=== PATIENT | male | born 1970 | race Caucasian/White ===

== ENCOUNTER 2019-08-11 12:25 | Emergency (ER) | payer OTHER ==
[~2019-08-11] VITALS: Ht 180.3 cm; Wt 79.4 kg
[2019-08-11 12:45] VITALS: BP_SYST 138
[2019-08-11 13:34] LABS: BASOPHILS % (AUTO) 0.6 % (0.0-2.0); EOSINOPHILS % (AUTO) 0.5 % (0.0-4.0); HEMATOCRIT 48.7 % (36-54); HEMOGLOBIN 16.6 g/dL (14.0-18.0); LYMPHOCYTES # (AUTO) 1.1 K/uL (1.0-5.5); MEAN CORPUSCULAR HEMOGLOBIN 33 pg (27-31); MEAN CORPUSCULAR HGB CONC 34 % (32-36); MEAN CORPUSCULAR VOLUME 96 fL (79.0-98.0); MONOCYTES # (AUTO) 0.5 K/uL (0.0-1.0); MONOCYTES % (AUTO) 7.4 % (1.7-9.3); NEUTROPHILS # (AUTO) 4.9 K/uL (1.8-7.7); NEUTROPHILS % (AUTO) 74.5 % (40.0-70.0); PLATELET COUNT (AUTO) 258 K/uL (130-430); RED CELL DISTRIBUTION WIDTH 13.9 % (9.0-15.0); WHITE BLOOD COUNT (AUTO) 6.6 K/uL (4.8-10.8)
[2019-08-11 13:49] LABS: ANION GAP 9 (5-15); CALCIUM 8.5 mg/dL (8.4-11.0); CHLORIDE 100 mmol/L (98-107); CREATININE 0.98 mg/dL (0.55-1.30); GLUCOSE 103 mg/dL (70-99); SODIUM SERUM 134 mmol/L (136-145); UREA NITROGEN, BLOOD 7 mg/dL (8-21)
[2019-08-11 13:52] LABS: PROTHROMBIN TIME 10.3 SECS (9.5-12.5)
[2019-08-11 13:55] LABS: BILIRUBIN,URINE 1+ (NEGATIVE); BLOOD, URINE NEGATIVE (NEGATIVE); CLARITY/URINE CLEAR (CLEAR); COLOR,URINE YELLOW (YELLOW); GLUCOSE,URINE NEGATIVE (NEGATIVE); KETONES,URINE TRACE (NEGATIVE); LEUKOCYTE ESTERASE ,URINE NEGATIVE (NEGATIVE); NITRITE, URINE NEGATIVE (NEGATIVE); PH,URINE 6.5 (5.0-8.0); PROTEIN URINE TRACE (NEGATIVE); UROBILINOGEN,URINE 0.2 (0.2-1.0)
[2019-08-11 13:56] LABS: GFR AFRICAN AMERICAN 105 mL/min (>90)
[2019-08-11] MEDS ORDERED: DIPH-TET-PERTUS Vaccine 0.5 ML VIAL (ADACEL) I.M. ONE (14:00)
[2019-08-11] MEDS ORDERED: LIDOCAINE/EPI 2% 1:100000 20 ML VIAL INJ ONE (14:00)
[2019-08-11 14:08] LABS: ALANINE AMINOTRANSFERASE 21 U/L (12-78); ASPARTATE AMINOTRANSFERASE 8 U/L (10-37); FREE T4 (FREE THYROXINE) 1.1 ng/dl (0.8-1.5); TOTAL BILIRUBIN 0.3 mg/dL (0.0-1.0)
[2019-08-11 14:11] LABS: ALCOHOL, BLOOD < 3 mg/dL (<10)
[2019-08-11 14:19] LABS: BARBITURATE, URINE NEGATIVE (NEG <=200); BENZODIAZEPINE, URINE NEGATIVE (NEG <=150); CANNABINOID, URINE NEGATIVE (NEG <=50); COCAINE, URINE NEGATIVE (NEG <=150); METHAMPHETAMINES SCREEN,URINE NEGATIVE (NEG <=500); OPIATE, URINE NEGATIVE (NEG <=100); PHENCYCLIDINE SCREEN,URINE NEGATIVE (NEG <=25); UR TRICYCLIC ANTIDEPRESSANTS NEGATIVE (NEG <=300); URINE AMPHETAMINE NEGATIVE (NEG <=500); URINE METHADONE NEGATIVE (NEG <=200); URINE OXYCODONE SCREEN NEGATIVE (NEG <=100); URINE PROPOXYPHENE SCREEN NEGATIVE (NEG <=300)
[2019-08-11] MEDS ORDERED: BACITRACIN 1 GM OINT TP ONE (14:39)
[2019-08-11 14:40] VITALS: BP_SYST 137
== END 2019-08-11 14:40 | disposition home or self-care (01) ==
LOC: SED 12:25
DX: S01.111A Laceration without foreign body of right eyelid and periocular area, initial encounter (principal); W18.39XA Other fall on same level, initial encounter; Y93.89 Activity, other specified; Y92.89 Other specified places as the place of occurrence of the external cause; Y99.8 Other external cause status
CPT/HCPCS: 12013; 36415; 70450; 71045; 74018; 80053; 80307; 81003; 82140; 83605; 83880; 84439; 84484; 85025; 85610; 87040; 90471; 90715; 93005; 99285; G0482

== ENCOUNTER 2020-03-06 11:33 | Emergency (ER) | payer OTHER, SELFPAY ==
[~2020-03-06] VITALS: Ht 167.6 cm; Wt 65.8 kg
[2020-03-06 11:40] VITALS: BP_SYST 137
--- NOTE | 2020-03-06 11:40 | NUR ---
Patient to ER bed 08 to gown for evaluation. Side rails up.
--- NOTE | 2020-03-06 11:42 | NUR ---
Patient brought in by ambulance in the ED c/o mild cough, diarrhea and right foot pain. Denied any chest pain or shortness of breath. Denied any fevers, chills, nausea or vomiting. Patient is alert and oriented x4, respirations even and unlabored, speaking in full sentences, and ambulating with a steady gait. VSS, pain level 4/10. Informed of the approximate wait time. Instructed to notify ED staff for any changes in condition or worsening of symptoms while waiting to be seen by an ED provider. Patient verbalized understanding.
--- NOTE | 2020-03-06 11:43 | NUR ---
ER Dr. Mendoza at bedside examining patient.
--- NOTE | 2020-03-06 11:49 | NUR ---
Swabbed for Covid-[address] Mendoza wearing the proper PPEs per facility protocol. Patient tolerated the procedure well. Dropped off specimen at the lab.
[2020-03-06] MEDS ORDERED: IBUPROFEN 600 MG TABLET PO ONE (12:00)
[2020-03-06 13:47] VITALS: BP_SYST 137
--- NOTE | 2020-03-06 13:47 | NUR ---
Patient given written and verbal discharge instructions and verbalizes understanding. ER MD discussed with patient the results and treatment provided. Patient in stable condition. ID arm band removed. No Rx given. Patient educated on pain management and to follow up with PMD. Pain Scale 0/10. Opportunity for questions provided and answered. Medication side effect fact sheet provided.
== END 2020-03-06 13:47 | disposition home or self-care (01) ==
LOC: SED 11:33
DX: J40 Bronchitis, not specified as acute or chronic (principal); M79.671 Pain in right foot; Z20.828 Contact with and (suspected) exposure to other viral communicable diseases
CPT/HCPCS: 36415; 71045; 99284

== ENCOUNTER 2020-03-23 19:11 | Emergency (ER) | payer OTHER ==
[~2020-03-23] VITALS: Ht 182.9 cm; Wt 90.7 kg
[2020-03-23 19:17] VITALS: BP_SYST 135
[2020-03-23 20:11] LABS: BASOPHILS # (AUTO) 0.1 K/uL (0.0-0.2); BASOPHILS % (AUTO) 2.5 % (0.0-2.0); EOSINOPHILS # (AUTO) 0.1 K/uL (0.0-0.4); EOSINOPHILS % (AUTO) 2.4 % (0.0-4.0); HEMATOCRIT 43.2 % (36-54); HEMOGLOBIN 15.1 g/dL (14.0-18.0); LYMPHOCYTES # (AUTO) 1.5 K/uL (1.0-5.5); LYMPHOCYTES % (AUTO) 26.3 % (20.5-51.5); MEAN CORPUSCULAR HEMOGLOBIN 33 pg (27-31); MEAN CORPUSCULAR HGB CONC 35 % (32-36); MEAN CORPUSCULAR VOLUME 94 fL (79.0-98.0); MONOCYTES # (AUTO) 0.6 K/uL (0.0-1.0); MONOCYTES % (AUTO) 11.5 % (1.7-9.3); NEUTROPHILS # (AUTO) 3.2 K/uL (1.8-7.7); NEUTROPHILS % (AUTO) 57.3 % (40.0-70.0); PLATELET COUNT (AUTO) 240 K/uL (130-430); RED BLOOD CELL COUNT(AUTO) 4.58 MIL/uL (4.2-6.2); RED CELL DISTRIBUTION WIDTH 14.6 % (9.0-15.0); WHITE BLOOD COUNT (AUTO) 5.6 K/uL (4.8-10.8)
[2020-03-23 20:19] LABS: ANION GAP 8 (5-15); CALCIUM 8.6 mg/dL (8.4-11.0); CHLORIDE 104 mmol/L (98-107); CREATININE 0.94 mg/dL (0.55-1.30); GLUCOSE 101 mg/dL (70-99); POTASSIUM 3.9 mmol/L (3.5-5.1); SODIUM SERUM 138 mmol/L (136-145); UREA NITROGEN, BLOOD 24 mg/dL (8-21)
[2020-03-23 20:20] LABS: GFR AFRICAN AMERICAN 109 mL/min (>90)
[2020-03-23 20:24] LABS: ALANINE AMINOTRANSFERASE 15 U/L (12-78); ALBUMIN 3.6 g/dL (3.4-4.8); ASPARTATE AMINOTRANSFERASE 16 U/L (10-37); TOTAL BILIRUBIN 0.5 mg/dL (0.0-1.0)
[2020-03-23 20:27] LABS: ALCOHOL, BLOOD < 3 mg/dL (<10)
[2020-03-23 20:29] LABS: ACETAMINOPHEN < 1 ug/mL (1-30)
[2020-03-23 20:38] LABS: BILIRUBIN,URINE NEGATIVE (NEGATIVE); BLOOD, URINE NEGATIVE (NEGATIVE); CLARITY/URINE CLEAR (CLEAR); COLOR,URINE YELLOW (YELLOW); GLUCOSE,URINE NEGATIVE (NEGATIVE); KETONES,URINE NEGATIVE (NEGATIVE); LEUKOCYTE ESTERASE ,URINE NEGATIVE (NEGATIVE); NITRITE, URINE NEGATIVE (NEGATIVE); PH,URINE 6.5 (5.0-8.0); PROTEIN URINE NEGATIVE (NEGATIVE)
[2020-03-23 20:55] LABS: BARBITURATE, URINE NEGATIVE (NEG <=200); BENZODIAZEPINE, URINE NEGATIVE (NEG <=150); CANNABINOID, URINE POSITIVE (NEG <=50); COCAINE, URINE NEGATIVE (NEG <=150); METHAMPHETAMINES SCREEN,URINE POSITIVE (NEG <=500); OPIATE, URINE NEGATIVE (NEG <=100); PHENCYCLIDINE SCREEN,URINE NEGATIVE (NEG <=25); UR TRICYCLIC ANTIDEPRESSANTS NEGATIVE (NEG <=300); URINE AMPHETAMINE POSITIVE (NEG <=500); URINE METHADONE NEGATIVE (NEG <=200); URINE OXYCODONE SCREEN NEGATIVE (NEG <=100); URINE PROPOXYPHENE SCREEN NEGATIVE (NEG <=300)
[2020-03-23 22:35] VITALS: BP_SYST 135
== END 2020-03-23 22:33 ==
LOC: SED 19:11
DX: R45.1 Restlessness and agitation (principal); F31.9 Bipolar disorder, unspecified; F20.9 Schizophrenia, unspecified; Z20.828 Contact with and (suspected) exposure to other viral communicable diseases
CPT/HCPCS: 36415; 80053; 80307; 81003; 85025; 87081; 87426; 99285; G0480; G0481; G0482

== ENCOUNTER 2020-10-25 20:57 | Emergency (ER) | payer OTHER, SELFPAY ==
[~2020-10-25] VITALS: Ht 180.3 cm; Wt 78.9 kg
[2020-10-25 21:20] VITALS: BP_SYST 148
[2020-10-25] MEDS ORDERED: LORazepam 1 MG TABLET PO ONE (21:45)
[2020-10-25] MEDS ORDERED: KETOROLAC TROMETHAMINE 60 MG/2 ML VIAL IM ONE (21:45)
[2020-10-26] MEDS ORDERED: IBUP-1969 PO (03:02)
[2020-10-26 06:02] VITALS: BP_SYST 131
== END 2020-10-26 06:02 | disposition home or self-care (01) ==
LOC: SED 20:57
DX: M43.6 Torticollis (principal)
CPT/HCPCS: 72040; 96372; 99283; J1885

== ENCOUNTER 2021-03-31 20:00 | Inpatient (IN) | payer OTHER, SELFPAY ==
[~2021-03-31] VITALS: Ht 180.3 cm; Wt 84.8 kg
[~2021-03-31 20:00] MED LIST: IBUP-1969 PO
[2021-03-31 20:15] VITALS: BP_SYST 133
[2021-03-31] MEDS ORDERED: DIVA250T PO (20:43)
[2021-03-31] MEDS ORDERED: ESCI20TA PO (20:43)
[2021-03-31] MEDS ORDERED: TRAZ-251 PO (20:43)
[2021-03-31] MEDS ORDERED: RISP3TAB63 PO (20:43)
[2021-03-31 20:47] LABS: HEMOGLOBIN 14.3 g/dL (14.0-18.0); MEAN CORPUSCULAR HGB CONC 35 % (32-36); MONOCYTES # (AUTO) 0.6 K/uL (0.0-1.0); NEUTROPHILS # (AUTO) 3.8 K/uL (1.8-7.7)
[2021-03-31 20:54] LABS: ANION GAP 8 (5-15); CALCIUM 9.1 mg/dL (8.4-11.0); CHLORIDE 101 mmol/L (98-107); CREATININE 1.03 mg/dL (0.55-1.30); GLUCOSE 110 mg/dL (70-99); POTASSIUM 4.7 mmol/L (3.5-5.1); SODIUM SERUM 139 mmol/L (136-145); UREA NITROGEN, BLOOD 15 mg/dL (8-21)
[2021-03-31 20:55] LABS: BASOPHILS % (AUTO) 0.4 % (0.0-2.0); C-REACTIVE PROTEIN QUANT 1.4 mg/dL (0-0.5); EOSINOPHILS % (AUTO) 0.7 % (0.0-4.0); GFR AFRICAN AMERICAN 98 mL/min (>90); LYMPHOCYTES # (AUTO) 1.4 K/uL (1.0-5.5); LYMPHOCYTES % (AUTO) 23.6 % (20.5-51.5); MEAN CORPUSCULAR HEMOGLOBIN 31 pg (27-31); MEAN CORPUSCULAR VOLUME 90 fL (79.0-98.0); MONOCYTES % (AUTO) 10.9 % (1.7-9.3); NEUTROPHILS % (AUTO) 64.4 % (40.0-70.0); PLATELET COUNT (AUTO) 398 K/uL (130-430); RED BLOOD CELL COUNT(AUTO) 4.55 MIL/uL (4.2-6.2); RED CELL DISTRIBUTION WIDTH 13.7 % (9.0-15.0); WHITE BLOOD COUNT (AUTO) 5.9 K/uL (4.8-10.8)
[2021-03-31 20:59] LABS: INR 0.9 (0.80-1.20)
[2021-03-31 21:00] LABS: ALANINE AMINOTRANSFERASE 31 U/L (12-78); ALBUMIN 3.3 g/dL (3.4-4.8); ASPARTATE AMINOTRANSFERASE 18 U/L (10-37); TOTAL BILIRUBIN 0.2 mg/dL (0.0-1.0)
[2021-03-31 21:01] LABS: ACETAMINOPHEN < 1 ug/mL (1-30); ALCOHOL, BLOOD < 3 mg/dL (<10)
[2021-03-31] MEDS ORDERED: CLIN300C12 PO (21:10)
[2021-03-31] MEDS ORDERED: BACITRACIN 1 GM OINT TP ONE (21:15)
[2021-03-31] MEDS ORDERED: MORPHINE 2 MG/ML INJ. SYRINGE IVP PRN (21:45)
[2021-03-31] MEDS ORDERED: VANCOMYCIN HCL 1000 MG/VIAL IV ONE (21:52)
[2021-03-31] MEDS ORDERED: PIPERACILLIN/TAZOBACTAM 3.375 GM/VIAL (ZOSYN) IV ONE (21:52)
[2021-03-31] MEDS ORDERED: VANCOMYCIN HCL 1,000 MG in NS 250 ML IV ONE (22:00)
[2021-03-31] MEDS: PIPERACILLIN/TAZO 3.375 GM in NS 50 ML IV SCH (22:02)
[2021-04-01 00:15] VITALS: BP_SYST 139
[2021-04-01] MEDS: MORPHINE 2 MG/ML INJ. SYRINGE IVP PRN (01:50)
[2021-04-01] MEDS ORDERED: PIPERACILLIN/TAZOBACTAM 3.375 GM/VIAL (ZOSYN) IV ONE (02:25)
[2021-04-01] MEDS: PIPERACILLIN/TAZO 3.375 GM in NS 50 ML IV SCH ×3 (05:11→21:06)
[2021-04-01 08:00] VITALS: BP_SYST 140
[2021-04-01] MEDS: VANCOMYCIN HCL 1,250 MG in NS 250 ML IV SCH ×2 (09:43→21:05)
[2021-04-01 12:00] VITALS: BP_SYST 128
[2021-04-01 16:00] VITALS: BP_SYST 124
[2021-04-01 20:00] VITALS: BP_SYST 127
[2021-04-02 01:10] VITALS: BP_SYST 143
[2021-04-02] MEDS: PIPERACILLIN/TAZO 3.375 GM in NS 50 ML IV SCH ×3 (06:22→22:14)
[2021-04-02 08:00] VITALS: BP_SYST 115
[2021-04-02] MEDS: VANCOMYCIN HCL 1,250 MG in NS 250 ML IV SCH ×2 (08:27→22:14)
[2021-04-02 09:58] LABS: BARBITURATE, URINE NEGATIVE (NEG <=200); BENZODIAZEPINE, URINE NEGATIVE (NEG <=150); CANNABINOID, URINE POSITIVE (NEG <=50); COCAINE, URINE NEGATIVE (NEG <=150); METHAMPHETAMINES SCREEN,URINE POSITIVE (NEG <=500); OPIATE, URINE NEGATIVE (NEG <=100); PHENCYCLIDINE SCREEN,URINE NEGATIVE (NEG <=25); UR TRICYCLIC ANTIDEPRESSANTS NEGATIVE (NEG <=300); URINE AMPHETAMINE POSITIVE (NEG <=500); URINE METHADONE NEGATIVE (NEG <=200); URINE OXYCODONE SCREEN NEGATIVE (NEG <=100); URINE PROPOXYPHENE SCREEN NEGATIVE (NEG <=300)
[2021-04-02 12:00] VITALS: BP_SYST 133
[2021-04-02 16:00] VITALS: BP_SYST 125
[2021-04-02 20:00] VITALS: BP_SYST 126
[2021-04-02] MEDS: traZODone HCL 50 MG TABLET (DESYREL) PO SCH (22:18)
[2021-04-02] MEDS: risperiDONE 1 MG TABLET (RisperDAL) PO SCH (22:19)
[2021-04-03] VITALS (7 sets, daily range): BP systolic 95–138
[2021-04-03] MEDS: PIPERACILLIN/TAZO 3.375 GM in NS 50 ML IV SCH ×3 (06:09→21:02)
[2021-04-03 08:15] LABS: BASOPHILS # (AUTO) 0.1 K/uL (0.0-0.2); BASOPHILS % (AUTO) 0.9 % (0.0-2.0); EOSINOPHILS # (AUTO) 0.1 K/uL (0.0-0.4); EOSINOPHILS % (AUTO) 1.1 % (0.0-4.0); HEMOGLOBIN 15.4 g/dL (14.0-18.0); LYMPHOCYTES # (AUTO) 1.5 K/uL (1.0-5.5); LYMPHOCYTES % (AUTO) 20.1 % (20.5-51.5); MEAN CORPUSCULAR HEMOGLOBIN 31 pg (27-31); MEAN CORPUSCULAR HGB CONC 34 % (32-36); MEAN CORPUSCULAR VOLUME 91 fL (79.0-98.0); MONOCYTES # (AUTO) 0.4 K/uL (0.0-1.0); MONOCYTES % (AUTO) 4.8 % (1.7-9.3); NEUTROPHILS # (AUTO) 5.5 K/uL (1.8-7.7); NEUTROPHILS % (AUTO) 73.1 % (40.0-70.0); PLATELET COUNT (AUTO) 441 K/uL (130-430); RED BLOOD CELL COUNT(AUTO) 4.94 MIL/uL (4.2-6.2); RED CELL DISTRIBUTION WIDTH 13.7 % (9.0-15.0); WHITE BLOOD COUNT (AUTO) 7.5 K/uL (4.8-10.8)
[2021-04-03 08:34] LABS: CREATININE 1.04 mg/dL (0.55-1.30); POTASSIUM 4.3 mmol/L (3.5-5.1)
[2021-04-03] MEDS: risperiDONE 1 MG TABLET (RisperDAL) PO SCH ×2 (08:37→21:03)
[2021-04-03] MEDS: CITALOPRAM HYDROBROMIDE 20 MG TABLET PO SCH (08:37)
[2021-04-03] MEDS: VANCOMYCIN HCL 1,250 MG in NS 250 ML IV SCH (08:37)
[2021-04-03] MEDS: DIVALPROEX SODIUM 250 MG TAB.SR.24H (DEPAKOTE ER) PO SCH (08:38)
[2021-04-03] MEDS ORDERED: ESCITALOPRAM OXALATE 10 MG TABLET PO SCH (09:00)
[2021-04-03] MEDS: MORPHINE 2 MG/ML INJ. SYRINGE IVP PRN (14:07)
[2021-04-03] MEDS: traZODone HCL 50 MG TABLET (DESYREL) PO SCH (21:00)
[2021-04-04] MEDS: PIPERACILLIN/TAZO 3.375 GM in NS 50 ML IV SCH ×3 (05:58→21:37)
[2021-04-04 08:00] VITALS: BP_SYST 129
[2021-04-04] MEDS: DIVALPROEX SODIUM 250 MG TAB.SR.24H (DEPAKOTE ER) PO SCH (08:54)
[2021-04-04] MEDS: risperiDONE 1 MG TABLET (RisperDAL) PO SCH ×2 (08:54→21:37)
[2021-04-04] MEDS: CITALOPRAM HYDROBROMIDE 20 MG TABLET PO SCH (08:54)
[2021-04-04 11:33] VITALS: BP_SYST 121
[2021-04-04 15:35] VITALS: BP_SYST 145
[2021-04-04 21:29] VITALS: BP_SYST 121
[2021-04-04] MEDS: traZODone HCL 50 MG TABLET (DESYREL) PO SCH (21:37)
[2021-04-05 05:01] VITALS: BP_SYST 116
[2021-04-05] MEDS: PIPERACILLIN/TAZO 3.375 GM in NS 50 ML IV SCH ×3 (05:41→20:52)
[2021-04-05 07:55] LABS: BASOPHILS % (AUTO) 0.4 % (0.0-2.0); EOSINOPHILS # (AUTO) 0.1 K/uL (0.0-0.4); HEMATOCRIT 41.2 % (36-54); HEMOGLOBIN 14.1 g/dL (14.0-18.0); LYMPHOCYTES # (AUTO) 1.4 K/uL (1.0-5.5); LYMPHOCYTES % (AUTO) 16.3 % (20.5-51.5); MEAN CORPUSCULAR HEMOGLOBIN 31 pg (27-31); MEAN CORPUSCULAR HGB CONC 34 % (32-36); MEAN CORPUSCULAR VOLUME 91 fL (79.0-98.0); MONOCYTES # (AUTO) 0.6 K/uL (0.0-1.0); MONOCYTES % (AUTO) 7.1 % (1.7-9.3); NEUTROPHILS # (AUTO) 6.5 K/uL (1.8-7.7); NEUTROPHILS % (AUTO) 75.2 % (40.0-70.0); PLATELET COUNT (AUTO) 421 K/uL (130-430); RED BLOOD CELL COUNT(AUTO) 4.53 MIL/uL (4.2-6.2); RED CELL DISTRIBUTION WIDTH 13.7 % (9.0-15.0); WHITE BLOOD COUNT (AUTO) 8.6 K/uL (4.8-10.8)
[2021-04-05 08:00] VITALS: BP_SYST 114
[2021-04-05 08:39] LABS: ANION GAP 9 (5-15); C-REACTIVE PROTEIN QUANT < 0.2 mg/dL (0-0.5); CALCIUM 8.1 mg/dL (8.4-11.0); CHLORIDE 104 mmol/L (98-107); CREATININE 0.86 mg/dL (0.55-1.30); GLUCOSE 129 mg/dL (70-99); SODIUM SERUM 138 mmol/L (136-145); UREA NITROGEN, BLOOD 23 mg/dL (8-21)
[2021-04-05 08:52] LABS: GFR AFRICAN AMERICAN 121 mL/min (>90)
[2021-04-05] MEDS: risperiDONE 1 MG TABLET (RisperDAL) PO SCH ×2 (08:52→20:19)
[2021-04-05] MEDS: CITALOPRAM HYDROBROMIDE 20 MG TABLET PO SCH (08:52)
[2021-04-05] MEDS: DIVALPROEX SODIUM 250 MG TAB.SR.24H (DEPAKOTE ER) PO SCH (08:53)
[2021-04-05 11:30] VITALS: BP_SYST 122
[2021-04-05 13:55] LABS: ERYTHROCYTE SEDIMENTATION RATE 14 MM/HR (0-15)
[2021-04-05 20:00] VITALS: BP_SYST 129; BP_SYST 132
[2021-04-05] MEDS: traZODone HCL 50 MG TABLET (DESYREL) PO SCH (20:19)
[2021-04-06] VITALS: BP_SYST 103
[2021-04-06 04:00] VITALS: BP_SYST 111
[2021-04-06] MEDS: PIPERACILLIN/TAZO 3.375 GM in NS 50 ML IV SCH ×3 (05:30→21:58)
[2021-04-06 08:03] VITALS: BP_SYST 123
[2021-04-06 08:22] LABS: BASOPHILS % (AUTO) 0.4 % (0.0-2.0); EOSINOPHILS # (AUTO) 0.1 K/uL (0.0-0.4); EOSINOPHILS % (AUTO) 1.5 % (0.0-4.0); HEMATOCRIT 41.9 % (36-54); HEMOGLOBIN 14.1 g/dL (14.0-18.0); LYMPHOCYTES # (AUTO) 1.4 K/uL (1.0-5.5); LYMPHOCYTES % (AUTO) 22.8 % (20.5-51.5); MEAN CORPUSCULAR HEMOGLOBIN 31 pg (27-31); MEAN CORPUSCULAR HGB CONC 34 % (32-36); MEAN CORPUSCULAR VOLUME 91 fL (79.0-98.0); MONOCYTES # (AUTO) 0.5 K/uL (0.0-1.0); MONOCYTES % (AUTO) 8.5 % (1.7-9.3); NEUTROPHILS # (AUTO) 4.1 K/uL (1.8-7.7); NEUTROPHILS % (AUTO) 66.8 % (40.0-70.0); PLATELET COUNT (AUTO) 452 K/uL (130-430); RED BLOOD CELL COUNT(AUTO) 4.61 MIL/uL (4.2-6.2); RED CELL DISTRIBUTION WIDTH 13.8 % (9.0-15.0); WHITE BLOOD COUNT (AUTO) 6.2 K/uL (4.8-10.8)
[2021-04-06] MEDS: CITALOPRAM HYDROBROMIDE 20 MG TABLET PO SCH (08:25)
[2021-04-06] MEDS: risperiDONE 1 MG TABLET (RisperDAL) PO SCH ×2 (08:26→21:59)
[2021-04-06] MEDS: DIVALPROEX SODIUM 250 MG TAB.SR.24H (DEPAKOTE ER) PO SCH (08:26)
[2021-04-06 09:45] LABS: CALCIUM 8.4 mg/dL (8.4-11.0); CREATININE 0.81 mg/dL (0.55-1.30); POTASSIUM 4.5 mmol/L (3.5-5.1)
[2021-04-06] MEDS ORDERED: NICOTINE 7 MG/24 HR PATCH.TD24 TD ONE (12:15)
[2021-04-06 12:30] VITALS: BP_SYST 124
[2021-04-06] MEDS ORDERED: NICOTINE 14 MG/24 HR PATCH.TD24 TD ONE (13:45)
[2021-04-06 16:17] VITALS: BP_SYST 139
[2021-04-06 20:30] VITALS: BP_SYST 137
[2021-04-06] MEDS: traZODone HCL 50 MG TABLET (DESYREL) PO SCH (21:58)
[2021-04-07 01:00] VITALS: BP_SYST 144
[2021-04-07] MEDS: PIPERACILLIN/TAZO 3.375 GM in NS 50 ML IV SCH ×3 (06:29→21:08)
[2021-04-07 08:00] VITALS: BP_SYST 138
[2021-04-07] MEDS: DIVALPROEX SODIUM 250 MG TAB.SR.24H (DEPAKOTE ER) PO SCH (08:15)
[2021-04-07] MEDS: CITALOPRAM HYDROBROMIDE 20 MG TABLET PO SCH (08:15)
[2021-04-07] MEDS: NICOTINE 14 MG/24 HR PATCH.TD24 TD SCH (08:15)
[2021-04-07] MEDS: risperiDONE 1 MG TABLET (RisperDAL) PO SCH ×2 (08:15→21:07)
[2021-04-07] MEDS ORDERED: NICOTINE 7 MG/24 HR PATCH.TD24 TD SCH (09:00)
[2021-04-07 12:00] VITALS: BP_SYST 125
[2021-04-07 16:43] VITALS: BP_SYST 128
[2021-04-07 19:00] VITALS: BP_SYST 130
[2021-04-07 21:00] VITALS: BP_SYST 129
[2021-04-07] MEDS: traZODone HCL 50 MG TABLET (DESYREL) PO SCH (21:08)
[2021-04-08 00:45] VITALS: BP_SYST 130
[2021-04-08 07:42] VITALS: BP_SYST 125
[2021-04-08] MEDS: NICOTINE 14 MG/24 HR PATCH.TD24 TD SCH (09:38)
[2021-04-08] MEDS: risperiDONE 1 MG TABLET (RisperDAL) PO SCH ×2 (09:39→22:14)
[2021-04-08] MEDS: CITALOPRAM HYDROBROMIDE 20 MG TABLET PO SCH (09:39)
[2021-04-08] MEDS: DIVALPROEX SODIUM 250 MG TAB.SR.24H (DEPAKOTE ER) PO SCH (09:39)
[2021-04-08 12:00] VITALS: BP_SYST 131
[2021-04-08] MEDS: PIPERACILLIN/TAZO 3.375 GM in NS 50 ML IV SCH ×2 (14:36→22:14)
[2021-04-08 16:00] VITALS: BP_SYST 126
[2021-04-08 19:00] VITALS: BP_SYST 132
[2021-04-08 20:00] VITALS: BP_SYST 130
[2021-04-08] MEDS: traZODone HCL 50 MG TABLET (DESYREL) PO SCH (22:14)
[2021-04-09] VITALS (8 sets, daily range): BP systolic 122–136
[2021-04-09] MEDS: PIPERACILLIN/TAZO 3.375 GM in NS 50 ML IV SCH ×3 (05:20→20:11)
[2021-04-09] MEDS: risperiDONE 1 MG TABLET (RisperDAL) PO SCH ×2 (09:48→20:11)
[2021-04-09] MEDS: CITALOPRAM HYDROBROMIDE 20 MG TABLET PO SCH (09:48)
[2021-04-09] MEDS: NICOTINE 14 MG/24 HR PATCH.TD24 TD SCH (09:48)
[2021-04-09] MEDS: DIVALPROEX SODIUM 250 MG TAB.SR.24H (DEPAKOTE ER) PO SCH (09:48)
[2021-04-09] MEDS ORDERED: MENTHOL/ZINC OXIDE 113 GM OINT. TP PRN (14:30)
[2021-04-09] MEDS: traZODone HCL 50 MG TABLET (DESYREL) PO SCH (20:10)
[2021-04-10] VITALS (9 sets, daily range): BP systolic 110–138
[2021-04-10] MEDS: PIPERACILLIN/TAZO 3.375 GM in NS 50 ML IV SCH ×3 (05:13→22:57)
[2021-04-10 06:47] LABS: BASOPHILS # (AUTO) 0.1 K/uL (0.0-0.2); BASOPHILS % (AUTO) 1.1 % (0.0-2.0); EOSINOPHILS # (AUTO) 0.1 K/uL (0.0-0.4); EOSINOPHILS % (AUTO) 1.4 % (0.0-4.0); HEMATOCRIT 42.4 % (36-54); HEMOGLOBIN 14.4 g/dL (14.0-18.0); LYMPHOCYTES # (AUTO) 1.4 K/uL (1.0-5.5); LYMPHOCYTES % (AUTO) 24.5 % (20.5-51.5); MEAN CORPUSCULAR HEMOGLOBIN 31 pg (27-31); MEAN CORPUSCULAR HGB CONC 34 % (32-36); MEAN CORPUSCULAR VOLUME 91 fL (79.0-98.0); MONOCYTES # (AUTO) 0.6 K/uL (0.0-1.0); MONOCYTES % (AUTO) 9.8 % (1.7-9.3); NEUTROPHILS # (AUTO) 3.6 K/uL (1.8-7.7); NEUTROPHILS % (AUTO) 63.2 % (40.0-70.0); PLATELET COUNT (AUTO) 477 K/uL (130-430); RED BLOOD CELL COUNT(AUTO) 4.66 MIL/uL (4.2-6.2); RED CELL DISTRIBUTION WIDTH 13.9 % (9.0-15.0); WHITE BLOOD COUNT (AUTO) 5.7 K/uL (4.8-10.8)
[2021-04-10 07:01] LABS: CALCIUM 9.1 mg/dL (8.4-11.0); CREATININE 0.96 mg/dL (0.55-1.30); POTASSIUM 4.6 mmol/L (3.5-5.1)
[2021-04-10] MEDS: CITALOPRAM HYDROBROMIDE 20 MG TABLET PO SCH (10:31)
[2021-04-10] MEDS: risperiDONE 1 MG TABLET (RisperDAL) PO SCH ×2 (10:32→20:47)
[2021-04-10] MEDS: NICOTINE 14 MG/24 HR PATCH.TD24 TD SCH (10:32)
[2021-04-10] MEDS: DIVALPROEX SODIUM 250 MG TAB.SR.24H (DEPAKOTE ER) PO SCH (10:32)
[2021-04-10] MEDS: traZODone HCL 50 MG TABLET (DESYREL) PO SCH (20:47)
[2021-04-11] VITALS: BP_SYST 112
[2021-04-11 01:57] VITALS: BP_SYST 118
[2021-04-11 03:15] VITALS: BP_SYST 110
== END 2021-04-11 03:17 | disposition short-term general hospital (02) | DRG 872 ==
LOC: SED 20:00 → SMU 21:40
PROVIDERS: ADMIT Internal Medicine; ATTEND Internal Medicine
DX: A41.9 Sepsis, unspecified organism (principal); L03.114 Cellulitis of left upper limb; F20.9 Schizophrenia, unspecified; F31.9 Bipolar disorder, unspecified; F41.9 Anxiety disorder, unspecified; S61.402A Unspecified open wound of left hand, initial encounter; X58.XXXA Exposure to other specified factors, initial encounter; L98.499 Non-pressure chronic ulcer of skin of other sites with unspecified severity; Z20.822 Contact with and (suspected) exposure to COVID-19; B96.5 Pseudomonas (aeruginosa) (mallei) (pseudomallei) as the cause of diseases classified elsewhere; Z79.1 Long term (current) use of non-steroidal anti-inflammatories (NSAID); Z79.899 Other long term (current) drug therapy; Y93.89 Activity, other specified; Y92.89 Other specified places as the place of occurrence of the external cause; Y99.8 Other external cause status
CPT/HCPCS: 36415; 78315; 80048; 80053; 80202; 80307; 82550; 83605; 85025; 85610-TC; 85651-TC; 85730-TC; 86140; 87040-TC; 87070-TC; 87081; 96365; 96366; 99285; A9503; G0480; G0481; G0482; J2270; J2543; J3370; J7050

== ENCOUNTER 2021-04-26 18:59 | Emergency (ER) | payer OTHER, SELFPAY ==
[~2021-04-26] VITALS: Ht 177.8 cm; Wt 78.9 kg
[~2021-04-26 18:59] MED LIST changes: +DIVA250T PO; +ESCI20TA PO; +RISP3TAB63 PO; +TRAZ-251 PO
[2021-04-26 19:05] VITALS: BP_SYST 146
--- NOTE | 2021-04-26 19:08 | NUR ---
Patient to ER bed 5. Side rails up. Report given to MONTRELL Romero.
--- NOTE | 2021-04-26 19:08 | NUR ---
ER Dr. Almendarez at bedside examining patient.
--- NOTE | 2021-04-26 19:10 | NUR ---
pt arrived to er for a medication refill. pt states he lost all of his psych meds. needs a refill. pt is a homeless. a&ox4. 0/10 pain.
--- NOTE | 2021-04-26 19:35 | NUR ---
PT GIVEN FOOD, AND HOMELESS PACKET UPON DISCHARGE
--- NOTE | 2021-04-26 19:35 | NUR ---
Patient given written and verbal discharge instructions and verbalizes understanding. ER MD discussed with patient the results and treatment provided. Patient in stable condition. ID arm band removed. Rx of haldol, valproic acid, klonopin, trazadone, cogentin given. Patient educated on pain management and to follow up with PMD. Pain Scale 0/10. Opportunity for questions provided and answered. Medication side effect fact sheet provided.
[2021-04-26 19:43] VITALS: BP_SYST 146
== END 2021-04-26 19:35 | disposition home or self-care (01) ==
LOC: SED 18:59
DX: F31.9 Bipolar disorder, unspecified (principal); F20.9 Schizophrenia, unspecified; Z76.0 Encounter for issue of repeat prescription; Z79.899 Other long term (current) drug therapy
CPT/HCPCS: 99283